=== PATIENT | male | born 1935 | race African-American/Black ===

== ENCOUNTER 2016-09-15 07:34 | Emergency (ER) | payer MEDICARE ==
[2016-09-15 07:49] VITALS: BP 136/92
--- NOTE | 2016-09-15 08:05 | UC ---
Respiratory Complaint HPI - HPI Summary HPI Summary: cough x 7 days + chest congestion , cough with green sputum , fatigue, sob no sore throat, no nasal congestion , no chest pain - History of Current Complaint Chief Complaint: UCRespiratory Stated Complaint: COUGH Time Seen by Provider: 09/15/16 07:47 Hx Obtained From: Patient Onset/Duration: Gradual Onset, Lasting Days - 7, Still Present Timing: Constant Severity Initially: Moderate Severity Currently: Moderate Character: Cough: Productive - green Aggravating Factors: Exertion, Deep Breaths Alleviating Factors: Nothing Associated Signs And Symptoms: Positive: Dyspnea, Wheezing. Negative: Fever, Chills, Pleuritic Chest Pain, Hemoptysis, Dizziness, Calf Pain, Calf Swelling, URI, Nasal Congestion - Allergies/Home Medications Allergies/Adverse Reactions: Allergies Allergy/AdvReac Type Severity Reaction Status Date / Time No Known Allergies Allergy Verified 09/15/16 07:42 PMH/Surg Hx/FS Hx/Imm Hx Endocrine History Of: Denies: Diabetes Cardiovascular History Of: Reports: Cardiac Disorders - irregular heartbeat, Hypertension, Atrial Fibrillation Respiratory History Of: Denies: Asthma GI/ History Of: Denies: Gastroesophageal Reflux Neurological History Of: Denies: TIA Psychological History Of: Denies: Anxiety Cancer History Of: Denies: Lung Cancer Other History Of: Negative For: Hepatitis B - Surgical History Surgical History: None - Family History Known Family History: Positive: None, Unknown, Hypertension - Social History Alcohol Use: None Substance Use Type: None Smoking Status (MU): Never Smoked Tobacco Have You Smoked in the Last Year: No - Immunization History Most Recent Influenza Vaccination: 2016 Most Recent Tetanus Shot: UNK Most Recent Pneumonia Vaccination: UTD Review of Systems Constitutional: Chills, Fatigue Skin: Negative Eyes: Negative ENT: Negative Respiratory: Shortness Of Breath, Cough Cardiovascular: Negative Gastrointestinal: Negative All Other Systems Reviewed And Are Negative: Yes Physical Exam Triage Information Reviewed: Yes Appearance: Well-Appearing, No Pain Distress, Well-Nourished Vital Signs: Initial Vital Signs Temp 96.8 F 09/15/16 07:44 Pulse 83 09/15/16 07:44 Resp 18 09/15/16 07:44 BP 136/92 09/15/16 07:44 Pulse Ox 98 09/15/16 07:44 Vital Signs Reviewed: Yes Eye Exam: Normal Eyes: Positive: Conjunctiva Clear ENT: Positive: Normal ENT inspection, Hearing grossly normal, Pharynx normal Neck: Positive: Supple, Nontender, No Lymphadenopathy Respiratory: Positive: Chest non-tender, Decreased breath sounds Cardiovascular: Positive: RRR, No Murmur, Pulses Normal Musculoskeletal Exam: Normal Skin Exam: Normal UC Diagnostic Evaluation - Laboratory O2 Sat by Pulse Oximetry: 98 Respiratory Course/Dx - Differential Dx/Diagnosis Provider Diagnoses: acute bronchitis Discharge - Discharge Plan Condition: Stable Disposition: HOME Prescriptions: Amoxicillin/Clavulanate TAB* [Augmentin TAB 875*] 875 mg PO BID #20 tab Benzonatate CAP* [Tessalon 100 MG CAP*] 100 mg PO TID #21 cap predniSONE TAB* [Deltasone TAB*] 40 mg PO DAILY #10 tab Patient Education Materials: Acute Bronchitis (ED) Referrals: Maritza Cherry MD [Primary Care Provider] - 7 Days
== END 2016-09-15 08:12 | disposition home or self-care (01) ==
LOC: UCCORT 07:34
DX: J20.9 Acute bronchitis, unspecified (principal)
CPT/HCPCS: 99212; G0463

== ENCOUNTER 2016-09-30 09:22 | Emergency (ER) | payer MEDICARE ==
--- NOTE | 2016-09-30 10:43 | UC ---
UC General HPI - HPI Summary HPI Summary: TWO DAY HISTORY OF RIGHT KNEE PAIN. PMH OF GOUT AND AFIB. WHILE WAITING IN ROOM , BECAME DIZZY AND SHORT OF BREATH WITH BLURRED VISION. - History of Current Complaint Chief Complaint: UCLowerExtremity Stated Complaint: RT KNEE PAIN Time Seen by Provider: 09/30/16 09:59 Hx Obtained From: Patient Onset/Duration: Sudden Onset, Lasting Minutes, Still Present Onset Severity: Moderate Current Severity: Mild Associated Signs & Symptoms: Positive: Dizziness, Weakness. Negative: Confusion , Edema, Fever, Headache, Syncope, Trauma, Vomiting - Allergy/Home Medications Allergies/Adverse Reactions: Allergies Allergy/AdvReac Type Severity Reaction Status Date / Time No Known Allergies Allergy Verified 09/30/16 09:42 PMH/Surg Hx/FS Hx/Imm Hx Previously Healthy: Yes Endocrine History Of: Denies: Diabetes Cardiovascular History Of: Reports: Cardiac Disorders - irregular heartbeat, Hypertension, Atrial Fibrillation Respiratory History Of: Denies: Asthma GI/ History Of: Denies: Gastroesophageal Reflux Neurological History Of: Denies: TIA Psychological History Of: Denies: Anxiety Cancer History Of: Denies: Lung Cancer Other History Of: Negative For: Hepatitis B - Surgical History Surgical History: None - Family History Known Family History: Positive: None, Unknown, Hypertension - Social History Occupation: Retired Lives: With Family Alcohol Use: None Substance Use Type: None Smoking Status (MU): Never Smoked Tobacco Have You Smoked in the Last Year: No - Immunization History Most Recent Influenza Vaccination: 2016 Most Recent Tetanus Shot: UNK Most Recent Pneumonia Vaccination: UTD Review of Systems Constitutional: Negative Skin: Negative Eyes: Negative ENT: Negative Respiratory: Shortness Of Breath Cardiovascular: Palpitations Gastrointestinal: Negative Genitourinary: Negative Motor: Negative Neurovascular: Negative Musculoskeletal: Arthralgia, Myalgia Neurological: Weakness Psychological: Negative All Other Systems Reviewed And Are Negative: Yes Physical Exam Triage Information Reviewed: Yes Appearance: Well-Appearing, No Pain Distress, Well-Nourished Vital Signs: Initial Vital Signs Temp 98.5 F 09/30/16 09:43 Pulse 86 09/30/16 09:43 Resp 16 09/30/16 09:43 BP 123/66 09/30/16 09:43 Pulse Ox 96 09/30/16 09:43 Vital Signs Reviewed: Yes Eye Exam: Normal ENT Exam: Normal ENT: Positive: Normal ENT inspection, Hearing grossly normal, TMs normal Dental Exam: Normal Neck exam: Normal Neck: Positive: Supple, Nontender Respiratory Exam: Normal Respiratory: Positive: Chest non-tender, Lungs clear, Normal breath sounds, No respiratory distress, No accessory muscle use Cardiovascular: Positive: Pulses Normal, Brisk Capillary Refill, Other: - AFIB Abdominal Exam: Normal Musculoskeletal: Positive: No Edema, Strength Limited @ - RIGHT KNEE, ROM Limited @ - RIGHT KNEE Neurological Exam: Normal Psychological Exam: Normal Skin Exam: Normal Course/Dx - Differential Dx - Multi-Symptom Differential Diagnoses: Other - AFIB, GOUT Provider Diagnoses: AFIB; DIZZINESS, SOB; RIGHT KNEE PAIN - Physician Notifications Discussed Patient Care With: KRISTINE VALDEZ Time Discussed With Above Provider: 10:20 Instructed by Provider To: MD Will See In ED Discharge - Discharge Plan Condition: Stable Disposition: TRANS HIGHER LVL OF CARE FAC Referrals: Maritza Cherry MD [Primary Care Provider] -
[2016-09-30 10:54] VITALS: BP 104/70
== END 2016-09-30 10:48 | disposition short-term general hospital (02) ==
LOC: UCCORT 09:22
DX: I48.91 Unspecified atrial fibrillation (principal); R42 Dizziness and giddiness; R06.02 Shortness of breath; I10 Essential (primary) hypertension; M10.9 Gout, unspecified
CPT/HCPCS: 93005; 99213; G0463

== ENCOUNTER 2016-10-02 10:01 | Emergency (ER) | payer MEDICARE ==
[2016-10-02 10:15] VITALS: BP 131/63
--- NOTE | 2016-10-02 10:39 | UC ---
Lower Extremity/Ankle HPI - HPI Summary HPI Summary: 81 YO MALE WITH RIGHT GREAT TOE PAIN AND SWELLING X DAYS HX OF GOUT AND THIS FEELS SIMILAR NO F/C NO TRAUMA - History of Current Complaint Chief Complaint: UCLowerExtremity Stated Complaint: right foot,big toe Time Seen by Provider: 10/02/16 10:03 Hx Obtained From: Patient Onset/Duration: Gradual Onset, Lasting Days Severity Initially: Mild Severity Currently: Mild Pain Intensity: 3 Pain Scale Used: 0-10 Numeric Aggravating Factor(s): Standing, Ambulation Alleviating Factor(s): Rest, Elevation Able to Bear Weight: Yes - Risk Factors Gout Risk Factors: Age Over 40, Male, Hypertension - Allergies/Home Medications Allergies/Adverse Reactions: Allergies Allergy/AdvReac Type Severity Reaction Status Date / Time No Known Allergies Allergy Verified 10/02/16 10:15 PMH/Surg Hx/FS Hx/Imm Hx Endocrine History Of: Denies: Diabetes Cardiovascular History Of: Reports: Cardiac Disorders - irregular heartbeat, Hypertension, Atrial Fibrillation Respiratory History Of: Denies: Asthma GI/ History Of: Denies: Gastroesophageal Reflux Neurological History Of: Denies: TIA Psychological History Of: Denies: Anxiety Cancer History Of: Denies: Lung Cancer Other History Of: Negative For: Hepatitis B - Surgical History Surgical History: None - Family History Known Family History: Positive: Hypertension, Diabetes - Social History Alcohol Use: None Substance Use Type: None Smoking Status (MU): Never Smoked Tobacco Have You Smoked in the Last Year: No - Immunization History Most Recent Influenza Vaccination: 2016 Most Recent Tetanus Shot: UNK Most Recent Pneumonia Vaccination: UTD Review of Systems Constitutional: Negative Skin: Negative Eyes: Negative ENT: Negative Respiratory: Negative Cardiovascular: Negative Gastrointestinal: Negative Genitourinary: Negative Motor: Negative Neurovascular: Negative Musculoskeletal: Arthralgia Neurological: Negative Psychological: Negative All Other Systems Reviewed And Are Negative: Yes Physical Exam Triage Information Reviewed: Yes Appearance: Well-Appearing, No Pain Distress, Well-Nourished Vital Signs: Initial Vital Signs Temp 98.5 F 10/02/16 10:11 Pulse 80 10/02/16 10:11 Resp 16 10/02/16 10:11 BP 131/63 10/02/16 10:11 Pulse Ox 96 10/02/16 10:11 Vital Signs Reviewed: Yes Eyes: Positive: Conjunctiva Clear ENT: Negative: Hearing grossly normal Neck: Positive: Supple, Nontender, No Lymphadenopathy Respiratory: Positive: Lungs clear, Normal breath sounds, No respiratory distress Cardiovascular: Positive: No Murmur. Negative: RRR Musculoskeletal: Positive: Other: - see image Neurological: Positive: Alert Psychological Exam: Normal Skin: Negative: rashes, breakdown Lower Extremity Course/Dx - Differential Dx/Diagnosis Provider Diagnoses: gout Discharge - Discharge Plan Condition: Stable Disposition: HOME Prescriptions: Prednisone [Deltasone] 40 mg PO DAILY #14 tab Patient Education Materials: Gout (ED) Referrals: Maritza Cherry MD [Primary Care Provider] - 4 Days (IF NOT BETTER) Images Feet (Multiple View): 1 - red/swollen
== END 2016-10-02 10:33 | disposition home or self-care (01) ==
LOC: UCCORT 10:01
DX: M10.071 Idiopathic gout, right ankle and foot (principal)
CPT/HCPCS: 99212; G0463

== ENCOUNTER 2016-11-29 08:34 | Emergency (ER) | payer MEDICARE ==
--- NOTE | 2016-11-29 08:54 | UC ---
Lower Extremity/Ankle HPI - HPI Summary HPI Summary: c/o gout pain /swelling right great toe and left index finger pip joint--- states he know what started this he ate the wrong thing-- - History of Current Complaint Chief Complaint: UCUpperExtremity Stated Complaint: LEFT HAND INDEX FINGER/RIGHT FOOT BIG TOE Time Seen by Provider: 11/29/16 08:45 Hx Obtained From: Patient Onset/Duration: Sudden Onset, Lasting Days - 2, Still Present Severity Initially: Moderate Severity Currently: Moderate Pain Intensity: 6 Pain Scale Used: 0-10 Numeric Aggravating Factor(s): Nothing Alleviating Factor(s): Nothing Able to Bear Weight: Yes - Allergies/Home Medications Allergies/Adverse Reactions: Allergies Allergy/AdvReac Type Severity Reaction Status Date / Time No Known Allergies Allergy Verified 11/29/16 08:46 PMH/Surg Hx/FS Hx/Imm Hx Previously Healthy: No Cardiovascular History: Cardiac Disease, Hypertension Other History Of: Negative For: Hepatitis B - Surgical History Surgical History: None - Family History Known Family History: Positive: Hypertension, Diabetes - Social History Occupation: Retired Lives: With Family Alcohol Use: None Substance Use Type: None Smoking Status (MU): Never Smoked Tobacco Have You Smoked in the Last Year: No - Immunization History Most Recent Influenza Vaccination: 2016 Most Recent Tetanus Shot: UNK Most Recent Pneumonia Vaccination: UTD Review of Systems Constitutional: Negative Skin: Negative Eyes: Negative ENT: Negative Respiratory: Negative Cardiovascular: Negative Gastrointestinal: Negative Genitourinary: Negative Motor: Negative Neurovascular: Negative Musculoskeletal: Arthralgia - right great toe and left index finger Neurological: Negative Psychological: Negative All Other Systems Reviewed And Are Negative: Yes Physical Exam Triage Information Reviewed: Yes Appearance: Well-Appearing, No Pain Distress, Well-Nourished Vital Signs Reviewed: Yes Eye Exam: Normal Eyes: Positive: Conjunctiva Clear ENT Exam: Normal ENT: Positive: Normal ENT inspection, Hearing grossly normal. Negative: Nasal congestion, Nasal drainage, Trismus, Muffled/hoarse voice Dental Exam: Normal Neck exam: Normal Neck: Positive: Supple, Nontender Respiratory Exam: Normal Respiratory: Positive: Chest non-tender, Lungs clear, Normal breath sounds, No respiratory distress, No accessory muscle use Cardiovascular Exam: Normal Cardiovascular: Positive: RRR, No Murmur, Pulses Normal, Brisk Capillary Refill Musculoskeletal Exam: Normal Musculoskeletal: Positive: Strength Intact, ROM Intact, No Edema Neurological Exam: Normal Neurological: Positive: Alert, Muscle Tone Normal Psychological Exam: Normal Skin Exam: Normal Lower Extremity Course/Dx - Course Course Of Treatment: colcrys, low purine diet, follow with pcp - Differential Dx/Diagnosis Differential Diagnosis/HQI/PQRI: Cellulitis, Gout, Tendonitis Provider Diagnoses: Reaccurance of Gout Discharge - Discharge Plan Condition: Stable Disposition: HOME Prescriptions: Colchicine* [Colcrys*] 0.6 mg PO DAILY #6 tab Patient Education Materials: Low Purine Diet (ED), Gout (ED) Referrals: Maritza Cherry MD [Primary Care Provider] - 1 Week
[2016-11-29 09:01] VITALS: BP 118/71
== END 2016-11-29 09:06 | disposition home or self-care (01) ==
LOC: UCCORT 08:34
DX: M10.9 Gout, unspecified (principal)
CPT/HCPCS: 99212; G0463

== ENCOUNTER 2017-01-15 15:53 | Emergency (ER) | payer MEDICARE ==
[2017-01-15 16:57] VITALS: BP 141/72
--- NOTE | 2017-01-15 17:11 | UC ---
Skin Complaint HPI - HPI Summary HPI Summary: pt c/o sudden onset of pain, redness, mild swellign in left big toe, metatarsophalangeal joint. X 1 day. Pt has history of gout. - History of Current Complaint Chief Complaint: UCSkin Time Seen by Provider: 01/15/17 16:54 Stated Complaint: LEFT FOOT COMPLAINT Hx Obtained From: Patient Onset/Duration: Sudden Onset, Still Present Skin Exposure Onset/Duration: Days Ago - 1 Timing: Constant Onset Severity: Mild Current Severity: Mild Location: Discrete - left big toe, metatarsophalangeal joint Character: Swelling, Pain, Redness Aggravating: Touch, Other - weight bearing Alleviating: Other - gout treatment Associated Signs & Symptoms: Positive: Negative Related History: Other: - previous history of gout - Allergy/Home Medications Allergies/Adverse Reactions: Allergies Allergy/AdvReac Type Severity Reaction Status Date / Time No Known Allergies Allergy Verified 01/15/17 16:52 Review of Systems Constitutional: Negative Skin: Other - erythema, midl swelling and tenerness left great toe metatarsophalangeal joint Eyes: Negative ENT: Negative Respiratory: Negative Cardiovascular: Negative Gastrointestinal: Negative Genitourinary: Negative Motor: Negative Neurovascular: Negative Musculoskeletal: Edema - left great toe metatarsophalangeal joint Neurological: Negative Psychological: Negative Is Patient Immunocompromised?: No All Other Systems Reviewed And Are Negative: Yes PMH/Surg Hx/FS Hx/Imm Hx Previously Healthy: No - see pmh Cardiovascular History: Cardiac Disease, Hypertension Other History Of: Negative For: Hepatitis B - Surgical History Surgical History: None - Family History Known Family History: Positive: Hypertension, Diabetes - Social History Occupation: Retired Lives: With Family Alcohol Use: None Substance Use Type: None Smoking Status (MU): Never Smoked Tobacco Have You Smoked in the Last Year: No - Immunization History Most Recent Influenza Vaccination: 2016 Most Recent Tetanus Shot: UNK Most Recent Pneumonia Vaccination: UTD Physical Exam Triage Information Reviewed: Yes Appearance: Well-Appearing Vital Signs: Initial Vital Signs Temp 97.6 F 01/15/17 16:53 Pulse 55 01/15/17 16:53 Resp 16 01/15/17 16:53 BP 141/72 01/15/17 16:53 Pulse Ox 96 01/15/17 16:53 Vital Signs Reviewed: Yes Eye Exam: Normal ENT Exam: Normal Neck exam: Normal Neck: Positive: Supple Respiratory Exam: Other Respiratory: Positive: No respiratory distress Musculoskeletal: Positive: Edema @ - left gret toe: metatarsophalangeal joint Neurological Exam: Normal Psychological Exam: Normal Skin Exam: Other - erythema, mild swelling left metatarsophalangeal joint Course/Dx - Differential Diagnoses - Skin Complaint Differential Diagnoses: Cellulitis - Diagnoses Provider Diagnoses: Gout left great toe Discharge - Discharge Plan Condition: Stable Disposition: HOME Prescriptions: Colchicine* [Colcrys*] 0.6 mg PO DAILY #3 tab Patient Education Materials: Low Purine Diet (ED), Gout (ED) Referrals: Geovani Burgess MD [Primary Care Provider] - If Needed
== END 2017-01-15 17:25 | disposition home or self-care (01) ==
LOC: UCCORT 15:53
DX: M10.072 Idiopathic gout, left ankle and foot (principal); I51.9 Heart disease, unspecified; I10 Essential (primary) hypertension
CPT/HCPCS: 99212; G0463

== ENCOUNTER 2017-02-26 08:44 | Emergency (ER) | payer MEDICARE ==
[2017-02-26 09:01] VITALS: BP 119/97
--- NOTE | 2017-02-26 09:27 | UC ---
Hand/Wrist HPI - HPI Summary HPI Summary: Patient is having a flare up of gout. he admits to drinking some red wine this week, which always causes a flare up. right thumb, and 2nd and 3rd finger swollen and tender. - History Of Current Complaint Chief Complaint: UCUpperExtremity Stated Complaint: RIGHT FINGER/WRIST PAIN (GOUT) Time Seen by Provider: 02/26/17 09:15 Hx Obtained From: Patient ?: No Onset/Duration: Sudden Onset, Lasting Days Severity Initially: Moderate Severity Currently: Moderate Character Of Pain: Dull, Aching, Throbbing, Spasmodic Aggravating Factor(s): Movement Alleviating Factor(s): Nothing Associated Signs And Symptoms: Positive: Swelling, Redness Related History: Dominant Hand Right - Allergies/Home Medications Allergies/Adverse Reactions: Allergies Allergy/AdvReac Type Severity Reaction Status Date / Time No Known Allergies Allergy Verified 02/26/17 09:02 Home Medications: Home Medications Colchicine* [Colcrys*] 0.6 mg PO DAILY PRN 02/26/17 [History Confirmed 02/26/17] PMH/Surg Hx/FS Hx/Imm Hx Previously Healthy: Yes Other History Of: Negative For: Hepatitis B - Surgical History Surgical History: None - Family History Known Family History: Positive: Hypertension, Diabetes - Social History Alcohol Use: Rare Substance Use Type: None Smoking Status (MU): Never Smoked Tobacco Have You Smoked in the Last Year: No - Immunization History Most Recent Influenza Vaccination: 2015 Most Recent Tetanus Shot: UNK Most Recent Pneumonia Vaccination: UTD Review of Systems Constitutional: Negative Skin: Negative Eyes: Negative ENT: Negative Respiratory: Negative Cardiovascular: Negative Gastrointestinal: Negative Genitourinary: Negative Motor: Negative Neurovascular: Negative Musculoskeletal: Arthralgia, Edema, Myalgia Neurological: Negative Psychological: Negative Is Patient Immunocompromised?: No All Other Systems Reviewed And Are Negative: Yes Physical Exam Triage Information Reviewed: Yes Appearance: Well-Appearing, Well-Nourished, Pain Distress Vital Signs: Initial Vital Signs Temp 98.6 F 02/26/17 08:53 Pulse 73 02/26/17 08:53 Resp 18 02/26/17 08:53 BP 119/97 02/26/17 08:53 Vital Signs Reviewed: Yes Eye Exam: Normal ENT Exam: Normal Dental Exam: Normal Neck exam: Normal Respiratory Exam: Normal Respiratory: Positive: Chest non-tender, Lungs clear, Normal breath sounds Cardiovascular Exam: Normal Cardiovascular: Positive: RRR, No Murmur, Pulses Normal Abdominal Exam: Normal Abdomen Description: Positive: Nontender, No Organomegaly, Soft Bowel Sounds: Positive: Present Musculoskeletal Exam: Normal Musculoskeletal: Positive: ROM Limited @ - in right hand, Edema @ - in right thumb and 2 fingers Neurological Exam: Normal Neurological: Positive: Alert, Muscle Tone Normal Psychological Exam: Normal Skin Exam: Normal Hand/Wrist Course/Dx - Course Course Of Treatment: hx obtained, exam performed ,meds reviewed, treated for GOUT, primary physician list given. - Differential Dx/Diagnosis Differential Diagnosis/HQI/PQRI: Contusion, Dislocation, Gout, Infection, Sprain , Strain Provider Diagnoses: gout, right hand Discharge - Discharge Plan Condition: Stable Disposition: HOME Prescriptions: Colchicine* [Colcrys*] 0.6 mg PO DAILY #3 tab predniSONE TAB* [Deltasone TAB*] 20 mg PO DAILY #10 tab Patient Education Materials: Low Purine Diet (ED), Gout (ED) Additional Instructions: 1. take the medication as prescribed. 2. I have included a list of primary physicians to follow up with.
== END 2017-02-26 09:38 | disposition home or self-care (01) ==
LOC: UCCORT 08:44
DX: M10.9 Gout, unspecified (principal)
CPT/HCPCS: 99212; G0463

== ENCOUNTER 2017-04-03 14:51 | Emergency (ER) | payer MEDICARE ==
[2017-04-03 15:26] VITALS: BP 140/93
--- NOTE | 2017-04-03 15:43 | UC ---
Upper Extremity HPI - HPI Summary HPI Summary: Pt presents with reoccurrence of gout in right hand. I was fortunate enough to see the patient at his last visit approx 1 month ago, where he was also seen for gout. At that time his gout was confirmed with XR and labwork. He was treated with Colchicine and Prednisone and experienced "75% relief" of his symptoms. He tells me that his pain and swelling were almost gone, but not all the way. Today, he admits that during he ate and drank foods that he was not supposed to and that are known to cause him gout flares. 2 days ago he developed pain and swelling of his right 1st and 2nd digits and right wrist along the joint lines. Denies fever, chills, injury, SOB, chest pain, abdominal pain, N/V/D/C. He tells me that his PCP moved away and, at his last visit, was provided information for a new PCP and follow up. Today he tells me that he prefers to come to the . - History of Current Complaint Chief Complaint: UCGeneralIllness Stated Complaint: RE CK RIGHT WRIST,THUMB, POINTER FINGER Time Seen by Provider: 04/03/17 15:38 Hx Obtained From: Patient Onset/Duration: Sudden Onset - Allergies/Home Medications Allergies/Adverse Reactions: Allergies Allergy/AdvReac Type Severity Reaction Status Date / Time No Known Allergies Allergy Verified 04/03/17 15:26 PMH/Surg Hx/FS Hx/Imm Hx Previously Healthy: Yes Endocrine History: Dyslipidemia Cardiovascular History: Cardiac Disease, Hypertension, Atrial Fibrillation Other History Of: Negative For: Hepatitis B - Surgical History Surgical History: None - Family History Known Family History: Positive: Hypertension, Diabetes - Social History Alcohol Use: None Substance Use Type: None Smoking Status (MU): Never Smoked Tobacco Have You Smoked in the Last Year: No - Immunization History Most Recent Influenza Vaccination: 2017 Most Recent Tetanus Shot: UNK Most Recent Pneumonia Vaccination: UTD Review of Systems Constitutional: Negative Skin: Other - Swelling right fingers and wrist Respiratory: Negative Cardiovascular: Negative Musculoskeletal: Decreased ROM - Right fingers and wrist, Edema - Right fingers and wrist Neurological: Negative Psychological: Negative All Other Systems Reviewed And Are Negative: Yes Physical Exam Triage Information Reviewed: Yes Appearance: Well-Appearing, Well-Nourished Vital Signs: Initial Vital Signs Temp 98.0 F 04/03/17 15:21 Pulse 88 04/03/17 15:21 Resp 17 04/03/17 15:21 BP 140/93 04/03/17 15:21 Pulse Ox 99 04/03/17 15:21 Vital Signs Reviewed: Yes Respiratory: Positive: Chest non-tender, Lungs clear, Normal breath sounds, No respiratory distress, No accessory muscle use Cardiovascular: Positive: No Murmur, Pulses Normal Musculoskeletal: Positive: Strength Intact, ROM Limited @ - Right 1st and 2nd digits. Right wrist. All due to pain and swelling of joints., Edema @ - Right 1st and 2nd digit PIP. Right dorsal wrist., Other: - TTP over 1st and 2nd digit PIP. TTP over dorsal wrist. Neurological: Positive: Alert, Other: - Sensations intact right wrist, hand, and all digits. Psychological: Positive: Age Appropriate Behavior Upper Extremity Course/Dx - Course Course Of Treatment: We had a long discussion regarding the importance of having a PCP, especially given his other chronic health problems. He said he will try to look for someone he likes and schedule an appointment. Gout with stable WNL renal function - rx for Colchicine and prednisone. Rx for Probenecid for after completion of colchicine/prednisone. Ideally, would have liked him to be on allopurinol, but given his lack of follow up care and potential to increase INR - decision was made to try probenecid. - Differential Dx/Diagnosis Provider Diagnoses: Gout right hand Discharge - Discharge Plan Condition: Stable Disposition: HOME Prescriptions: Colchicine* [Colcrys*] 0.6 mg PO DAILY #5 tab predniSONE TAB* [Deltasone TAB*] 30 mg PO DAILY #15 tab Probenecid TAB* [Benemid TAB*] 500 mg PO BID #30 tab Referrals: Geovani Burgess MD [Primary Care Provider] - Additional Instructions: If you develop a fever, SOB, chest pain, new or worsening symptoms - please call your PCP or go to the ED. Your blood pressure was high at todays visit. Please see your primary provider within 4 weeks for recheck and re-evaluation.
== END 2017-04-03 16:12 | disposition home or self-care (01) ==
LOC: UCCORT 14:51
DX: M10.041 Idiopathic gout, right hand (principal); E78.5 Hyperlipidemia, unspecified; I48.91 Unspecified atrial fibrillation; I11.9 Hypertensive heart disease without heart failure
CPT/HCPCS: 99212; G0463

== ENCOUNTER 2017-05-13 16:43 | Emergency (ER) | payer MEDICARE ==
[2017-05-13 17:33] VITALS: BP 152/82
--- NOTE | 2017-05-13 17:50 | UC ---
Respiratory Complaint HPI - HPI Summary HPI Summary: 81 y/o male presents to the Urgent care c/o productive cough with chest congestion, sore throat, body aches, and mild fever for the past week. Pt states symptoms has worsen for the past 2 days when he started to develop chills and mild subjective fever and PICKERING. Pain is 6/10 with swallowing and PICKERING. Cough is producing a yellowish phlegm. He has been taking an OTC cough syrup. Pt denies SOB, chest pain, N/V/D abdominal pain, - History of Current Complaint Chief Complaint: UCRespiratory Stated Complaint: COLD SX Time Seen by Provider: 05/13/17 17:29 Hx Obtained From: Patient Onset/Duration: Gradual Onset, Lasting Weeks - 1 week, Worse Since - 2 days Timing: Constant Severity Initially: Mild Severity Currently: Moderate Pain Intensity: 6 Pain Scale Used: 0-10 Numeric Character: Cough: Productive - yellowish phlegm Aggravating Factors: Recumbent Position Alleviating Factors: OTC Meds Associated Signs And Symptoms: Positive: Fever, Chills, URI, Nasal Congestion - Risk Factors Pulmonary Embolism Risk Factors: Negative Cardiac Risk Factors: Negative Pseudomonas Risk Factors: Negative Tuberculosis Risk Factors: Negative - Allergies/Home Medications Allergies/Adverse Reactions: Allergies Allergy/AdvReac Type Severity Reaction Status Date / Time No Known Allergies Allergy Verified 05/13/17 17:33 PMH/Surg Hx/FS Hx/Imm Hx Previously Healthy: Yes Other Endocrine History: Gout Cardiovascular History: Hypertension, Congestive Heart Failure, Atrial Fibrillation Other History Of: Negative For: Hepatitis B - Surgical History Surgical History: None - Family History Known Family History: Positive: Hypertension, Diabetes - Social History Occupation: Retired Lives: With Family Alcohol Use: None Substance Use Type: None Smoking Status (MU): Never Smoked Tobacco Have You Smoked in the Last Year: No - Immunization History Most Recent Influenza Vaccination: 2017 Most Recent Tetanus Shot: UNK Most Recent Pneumonia Vaccination: UTD Review of Systems Constitutional: Fever, Other - body aches Skin: Negative Eyes: Negative ENT: Sore Throat, Nasal Discharge, Sinus Congestion, Sinus Pain/Tenderness Respiratory: Cough Cardiovascular: Negative Gastrointestinal: Negative Genitourinary: Negative Motor: Negative Neurovascular: Negative Musculoskeletal: Negative Neurological: Headache Psychological: Negative Is Patient Immunocompromised?: No All Other Systems Reviewed And Are Negative: Yes Physical Exam Triage Information Reviewed: Yes Vital Signs: Initial Vital Signs Temp 100 F 05/13/17 17:29 Pulse 87 05/13/17 17:29 Resp 16 05/13/17 17:29 BP 152/82 05/13/17 17:29 Pulse Ox 97 05/13/17 17:29 - Additional Comments Vital Signs Reviewed: Yes General: well developed, well nourished male sitting in the examining table w/o any apparent distress Eyes: Positive: Conjunctiva Clear - PERRLA, EOMI, fundi grossly normal ENT: Positive: Normal ENT inspection, Hearing grossly normal, Pharynx normal, Nasal congestion - edematous and erythematous nasal mucosa, Nasal drainage - yellowish drainage, TMs normal. Negative: Tonsillar swelling, Tonsillar exudate Neck: Positive: Supple, Nontender, No Lymphadenopathy Respiratory: no orthopnea or dyspnea. Able to speak in full sentences, no retractions or accessory muscle use, no tripod position, stridor, or head bobbing. positive breath sound bilaterally, mild wheezing in the left upper posterior lung with mild rhonchi, no rales. Cardiovascular: Positive: RRR, No Murmur, Pulses Normal, Brisk Capillary Refill Abdomen Description: Positive: Nontender, No Organomegaly, Soft. Negative: CVA Tenderness (R), CVA Tenderness (L) Bowel Sounds: Positive: Present Musculoskeletal Exam: Normal Musculoskeletal: Positive: Strength Intact, ROM Intact, No Edema Neurological Exam: Normal Psychological Exam: Normal Skin Exam: Normal UC Diagnostic Evaluation - Laboratory O2 Sat by Pulse Oximetry: 97 Respiratory Course/Dx - Course Course Of Treatment: 81 y/o male presents to the Urgent care c/o productive cough with chest congestion, sore throat, body aches, and mild fever for the past week. Pt states symptoms has worsen for the past 2 days when he started to develop chills and mild subjective fever and PICKERING. Pain is 6/10 with swallowing and PICKERING. Cough is producing a yellowish phlegm. He has been taking an OTC cough syrup. Pt denies SOB, chest pain, N/V/D abdominal pain,Hx obtained. Pt with mild B/L posterior upper lungs with wheezing on examination. Pt w/o Hx of smoking or asthma. Chest X-rasy ordered to r/o any cariopulmonary disease. Impression:No evidence of any acute finding observed as per radiologist. Pt given Prednisone 60mg PO and albuterol Neb Tx to alleviate wheezing and Tylenol PO to decrease temp. O2sat: 97%. Pt tolerated well treatment and lungs cleared. Pt felt better O2Sat: 98%. Influenza A&B: negative. Pt with be Tx for Acute Bronchitis exacerbated by wheezing. Patient prescribed Ugmentin PO, Tessalon PO, Prednisone taper dose and albuterol inhaler, as directed below. The patient was recommended to increase fluid intake. Take medications as recommended. pt instructed to return to the clinic or go to the nearest ER if symptoms do not improve or worsen.Pt's BP is elevated today advised to decrease salt in diet, monitor BP and f/u with PCP for further management. Pt is hemodynamically stable, A&OX3, stating feeling better. Patient understood and agree with plan of care - Differential Dx/Diagnosis Differential Diagnosis/HQI/PQRI: Asthma, Bronchitis, Influenza, Laryngitis, Lower Resp Infection, Sinusitis, Other - pneumonia, Provider Diagnoses: 1- Acute bronchitis. 2- Wheezing. 3- Uncontrolled HTN Discharge - Discharge Plan Condition: Stable Disposition: HOME Prescriptions: Albuterol HFA INHALER* [Ventolin HFA Inhaler*] 1 - 2 puff INH Q6H PRN #1 mdi PRN Reason: Cough Amoxicillin/Clavulanate TAB* [Augmentin TAB 875*] 875 mg PO BID #20 tab Benzonatate CAP* [Tessalon 100 MG CAP*] 100 mg PO TID #21 cap predniSONE TAB* [Deltasone TAB*] 20 mg PO DAILY #8 tab Patient Education Materials: Acute Bronchitis (ED), Low Sodium Diet (ED), Wheezing (ED) Referrals: [facility] [place] [facility] [Outside] - 2 Days Additional Instructions: 1-Please take full course of antibiotic if symptoms are not improving in 2 days. 2-Take Tessalon PO tabs as directed and use the albuterol inhaler to alleviate cough. Take the Prednisone PO as indicated starting tomorrow. Increase fluid intake, rest and eat well. 3- If symptoms do not improve or worsen or your develop SOB with fever and severe wheezing please go immediately to the ER further evaluation and treatment. 4- F/u with your PCP in 3 days for further management if not improvement. 5-Your BP is elevated today. please decrease salt in your diet, monitor BP and if it continues to be elevated please f/u with your PCP for further management
[2017-05-13] MEDS ORDERED: Albuterol 2.5 MG/3 ML NEB.SOL* (0.083%) INH ONE (17:51)
[2017-05-13] MEDS ORDERED: predniSONE TAB* 20 MG PO ONE (17:52)
[2017-05-13] MEDS ORDERED: Acetaminophen TAB* 325 MG PO ONE (17:53)
--- NOTE | 2017-05-13 18:24 | RAD ---
INDICATION: Productive cough, fever and shortness of breath. COMPARISON: Comparison is made with a prior chest x-ray study from March 11, 2015. TECHNIQUE: Dual-energy PA and lateral views of the chest were obtained. FINDINGS: The heart is moderately enlarged and unchanged from the prior study. The lungs are underinflated and clear. No pleural effusion is seen. IMPRESSION: NO EVIDENCE FOR ACUTE FINDING.
== END 2017-05-13 19:00 | disposition home or self-care (01) ==
LOC: UCCORT 16:43
DX: J20.9 Acute bronchitis, unspecified (principal); R06.2 Wheezing; I10 Essential (primary) hypertension
CPT/HCPCS: 71046; 87502; 99213; A9270-GY; G0463; J7512

== ENCOUNTER 2017-07-05 16:43 | Emergency (ER) | payer MEDICARE ==
--- NOTE | 2017-07-05 19:56 | UC ---
Hand/Wrist HPI - HPI Summary HPI Summary: PT WITH SEVERAL DAYS OF LEFT HAND SWELLING, REDNESS AND WARMTH. PT CONCERNED ABOUT GOUT. HAS A H/O GOUT. ALSO REPORTS HIS DOG BIT HIM ON THE LEFT INDEX FINGER 1-2 DAYS BEFORE ONSET OF SX. UNKNOWN DATE OF LAST TETANUS. PT ALSO STATES HE HAS BEEN COUGHING WITH SOME WHITE PHLEGM FOR ABOUT A WEEK. NO FEVER, NAUSEA, ST, EAR PAIN OR PICKERING. NO BODY ACHES. - History Of Current Complaint Chief Complaint: UCRespiratory Stated Complaint: CONGESTION,COUGH,BILATERAL HAND PAIN Time Seen by Provider: 07/05/17 19:32 Hx Obtained From: Patient Onset/Duration: Gradual Onset, Lasting Days, Still Present Severity Initially: Moderate Severity Currently: Moderate Pain Intensity: 5 Character Of Pain: Aching Aggravating Factor(s): Movement Alleviating Factor(s): Rest Associated Signs And Symptoms: Positive: Swelling, Redness, Other - WARMTH Related History: Dominant Hand Right - Allergies/Home Medications Allergies/Adverse Reactions: Allergies Allergy/AdvReac Type Severity Reaction Status Date / Time No Known Allergies Allergy Verified 07/05/17 17:32 PMH/Surg Hx/FS Hx/Imm Hx - Additional Past Medical History Additional PMH: GOUT Cardiovascular History: Hypertension, Atrial Fibrillation Other History Of: Negative For: Hepatitis B - Surgical History Surgical History: None - Family History Known Family History: Positive: Hypertension, Diabetes - Social History Alcohol Use: None Substance Use Type: None Smoking Status (MU): Never Smoked Tobacco Have You Smoked in the Last Year: No - Immunization History Most Recent Influenza Vaccination: 2016 Most Recent Tetanus Shot: UNK Most Recent Pneumonia Vaccination: UTD Review of Systems Constitutional: Negative Skin: Other - ERYTHEMA/WARMTH LEFT HAND ENT: Sore Throat Respiratory: Cough Cardiovascular: Negative Gastrointestinal: Negative Musculoskeletal: Arthralgia, Decreased ROM, Edema All Other Systems Reviewed And Are Negative: Yes Physical Exam Triage Information Reviewed: Yes Appearance: Well-Appearing, No Pain Distress, Well-Nourished Vital Signs: Initial Vital Signs Temp 98.7 F 07/05/17 17:34 Pulse 82 07/05/17 17:34 BP 120/79 07/05/17 17:34 Pulse Ox 99 07/05/17 17:34 Vital Signs Reviewed: Yes Eyes: Positive: Conjunctiva Clear ENT: Positive: Hearing grossly normal, Pharynx normal, TMs normal Neck: Positive: Supple, Nontender, No Lymphadenopathy Respiratory Exam: Normal Cardiovascular Exam: Normal Abdomen Description: Positive: Soft Musculoskeletal: Positive: ROM Limited @ - LEFT INDEX FINGER, Edema @ - LEFT HAND, Other: - TTP LEFT HAND PALM. NOT TENDER INDEX FINGER AROUND BITE SITE. Neurological: Positive: Alert Psychological: Positive: Age Appropriate Behavior Skin: Positive: Other - ERYTHEMA, WARMTH, EDEMA LEFT HAND. HEALING PUNCTURE WOUND LEFT INDEX FINGER Hand/Wrist Course/Dx - Differential Dx/Diagnosis Provider Diagnoses: 1. CELLULITIS S/P DOG BITE LEFT HAND. 2. ACUTE URI. 3. TDAP BOOSTER Discharge - Discharge Plan Condition: Stable Disposition: HOME Prescriptions: Amoxicillin/Clavulanate TAB* [Augmentin TAB 875*] 875 mg PO BID #20 tab predniSONE TAB* [Deltasone TAB*] 40 mg PO DAILY #10 tab Patient Education Materials: Animal Bite (ED), Cellulitis (ED), Upper Respiratory Infection (ED) Referrals: Alvaro Voss MD [Medical Doctor] - If Needed Additional Instructions: TETANUS IMMUNIZATION GIVEN (TDAP): You have been given an immunization against tetanus. Please record this in your records. In general, a booster is needed only once every 10 years. The tetanus shot protects against tetanus or "lockjaw," which is a complication of certain wound infections (the tetanus shot cannot protect against the actual infection). The immunization site may become warm and red due to local reaction. If this occurs, apply warm compresses and take aspirin or ibuprofen to reduce inflammation and discomfort. Return for evaluation if the reaction becomes severe. LOW SUSPICION FOR GOUT BUT GIVEN YOUR HISTORY WILL COVER WITH PREDNISONE. IF YOUR HAND SYMPTOMS DO NOT COMPLETELY RESOLVE WITH TREATMENT FOLLOW-UP WITH DR. VOSS WITH [facility]. CHECK YOUR INR EVERY 3 DAYS FOR THE NEXT 2 WEEKS. CALL YOUR [facility] IN [place] IF YOU ARE OUT OF RANGE. [facility] CAN INTERFERE WITH YOUR WARFARIN AND INCREASE YOUR INR. GO TO THE ER WITHOUT FAIL IF YOU START BLEEDING FROM ANYWHERE.
[2017-07-05 20:01] VITALS: BP 126/95
[2017-07-05] MEDS ORDERED: Tetan/Diph/Pertus SYR(Tdap)* 0.5 ML SYR(BOOSTRIX) use SYR IM ONE (20:01)
== END 2017-07-05 20:12 | disposition home or self-care (01) ==
LOC: UCCORT 16:43
DX: L03.012 Cellulitis of left finger (principal); W54.0XXA Bitten by dog, initial encounter; Y93.9 Activity, unspecified; Y92.009 Unspecified place in unspecified non-institutional (private) residence as the place of occurrence of the external cause; J06.9 Acute upper respiratory infection, unspecified; Z23 Encounter for immunization
CPT/HCPCS: 90471; 90715; 99212; G0463

== ENCOUNTER 2017-08-19 13:59 | Emergency (ER) | payer MEDICARE ==
--- NOTE | 2017-08-19 14:21 | UC ---
Lower Extremity/Ankle HPI - HPI Summary HPI Summary: Pt presents with left great MTP pain for the last 3 days - seems to be getting worse. He has a hx of multiple gout flares. He admits that he has been eating a lot of fish and has had wine/beer recently. Denies injury, fever, or chills. - History of Current Complaint Stated Complaint: LEFT GREAT TOE COMPLAINT Time Seen by Provider: 08/19/17 14:21 Hx Obtained From: Patient Onset/Duration: Gradual Onset Severity Initially: Mild Severity Currently: Moderate Pain Intensity: 4 Pain Scale Used: 0-10 Numeric Able to Bear Weight: Yes - Allergies/Home Medications Allergies/Adverse Reactions: Allergies Allergy/AdvReac Type Severity Reaction Status Date / Time No Known Allergies Allergy Verified 08/19/17 14:24 PMH/Surg Hx/FS Hx/Imm Hx Endocrine History: Dyslipidemia Cardiovascular History: Cardiac Disease, Hypertension, Atrial Fibrillation Other History Of: Negative For: Hepatitis B - Surgical History Surgical History: None - Family History Known Family History: Positive: Hypertension, Diabetes - Social History Occupation: Retired Lives: With Family Alcohol Use: None Substance Use Type: None Smoking Status (MU): Never Smoked Tobacco Have You Smoked in the Last Year: No - Immunization History Most Recent Influenza Vaccination: 2017 Most Recent Tetanus Shot: UNK Most Recent Pneumonia Vaccination: UTD Review of Systems Constitutional: Negative Skin: Negative Respiratory: Negative Cardiovascular: Negative Neurovascular: Negative Musculoskeletal: Other: - Left great MTP pain Neurological: Negative Psychological: Negative All Other Systems Reviewed And Are Negative: Yes Physical Exam - Summary Physical Exam Summary: GENERAL: NAD. WDWN. No pain distress. SKIN: No rashes, sores, ulcers, masses, lesions. NECK: Supple. Nontender. No lymphadenopathy. CHEST: CTAB. No r/r/w. No accessory muscle use. Breathing comfortably and in no distress. CV: RRR. Without m/r/g. Pulses intact PT and DP. Brisk cap refill. MSK: Left great MTP with mild TTP and edema. Mild erythema. FROM. NEURO: Alert. Sensations intact and symmetric B/L LEs PSYCH: Age appropriate behavior. Triage Information Reviewed: Yes Lower Extremity Course/Dx - Course Course Of Treatment: Suspect gout flare. He has done well with colchicine and prednisone in the past - will rx for this again. He still does not want a PCP and or to see someone else for his healthcare. - Differential Dx/Diagnosis Provider Diagnoses: Gout Discharge - Sign-Out/Discharge Documenting (check all that apply): Discharge - Discharge Plan Condition: Stable Disposition: HOME Prescriptions: Colchicine* [Colcrys*] 0.6 mg PO DAILY #5 tab predniSONE TAB* [Deltasone TAB*] 20 mg PO BID #10 tab Referrals: No Primary Care Phys,NOPCP [Primary Care Provider] - Additional Instructions: If you develop a fever, shortness of breath, chest pain, new or worsening symptoms - please call your PCP or go to the ED. Your blood pressure was high at todays visit. Please see your primary provider within 4 weeks for recheck and re-evaluation. - Billing Disposition and Condition Condition: STABLE Disposition: HOME
[2017-08-19 14:27] VITALS: BP 112/69
== END 2017-08-19 15:07 | disposition home or self-care (01) ==
LOC: UCCORT 13:59
DX: M10.9 Gout, unspecified (principal); I10 Essential (primary) hypertension
CPT/HCPCS: 99212; G0463

== ENCOUNTER 2018-02-03 17:15 | Emergency (ER) | payer MEDICARE ==
--- NOTE | 2018-02-03 19:35 | UC ---
Knee Pain HPI - HPI Summary HPI Summary: C/O left knee pain swelling and pain after hitting it on a piano. No sweats or chills. - History of Current Complaint Chief Complaint: UCLowerExtremity Stated Complaint: LEFT KNEE COMPLAINT (FALL 2 DAYS AGO) Hx Obtained From: Patient Onset/Duration: Sudden Onset, Lasting Days - 2, Worse Since - since onset Severity Initially: Mild Severity Currently: Moderate Pain Intensity: 5 Character: Dull, Aching Aggravating Factor(s): Movement, Weight Bearing Alleviating Factor(s): Rest Associated Signs And Symptoms: Positive: Swelling, Redness. Negative: Fever, Weakness, Numbness, Tingling Able to Bear Weight: Yes Related History: Similar Episode/Dx as - gout - Allergies/Home Medications Allergies/Adverse Reactions: Allergies Allergy/AdvReac Type Severity Reaction Status Date / Time No Known Allergies Allergy Verified 02/03/18 17:27 PMH/Surg Hx/FS Hx/Imm Hx Other Endocrine History: Gout Cardiovascular History: Hypertension Other History Of: Negative For: Hepatitis B - Surgical History Surgical History: None - Family History Known Family History: Positive: Hypertension, Diabetes - Social History Occupation: Retired Lives: Alone - with girlfriend Alcohol Use: Rare Substance Use Type: None Smoking Status (MU): Never Smoked Tobacco Have You Smoked in the Last Year: No - Immunization History Most Recent Influenza Vaccination: 2017 Most Recent Tetanus Shot: UNK Most Recent Pneumonia Vaccination: UTD Review of Systems Musculoskeletal: Arthralgia Is Patient Immunocompromised?: No All Other Systems Reviewed And Are Negative: Yes Physical Exam Triage Information Reviewed: Yes Appearance: Well-Appearing, Well-Nourished, Pain Distress - mild Vital Signs: Initial Vital Signs Temp 98.4 F 02/03/18 17:21 Pulse 96 02/03/18 17:21 Resp 20 02/03/18 17:21 BP 102/70 02/03/18 17:21 Pulse Ox 97 02/03/18 17:21 Vital Signs Reviewed: Yes Neck exam: Normal Respiratory Exam: Normal Cardiovascular: Positive: Murmur:Sys:Grade _?_/ - 2/6. Negative: RRR - irregular Musculoskeletal: Positive: Other: - redness, warmth and tenderness over the left tibial tubercle Neurological Exam: Normal Psychological Exam: Normal Skin: Positive: Other - erythema over the left tibial tubercle. Knee Pain Course/Dx - Differential Dx/Diagnosis Differential Diagnosis/HQI/PQRI: Abrasion, Cellulitis, Contusion, Gout Provider Diagnoses: Cellulitis left knee. Gout left knee Discharge - Sign-Out/Discharge Documenting (check all that apply): Patient Departure All imaging exams completed and their final reports reviewed: No Studies - Discharge Plan Condition: Stable Disposition: HOME Prescriptions: Cephalexin CAP* [Keflex 500 CAP*] 500 mg PO QID #40 cap Colchicine* [Colcrys*] 0.6 mg PO BID #60 tab Patient Education Materials: Cellulitis (ED), Cephalexin (By mouth), Gout (ED) , Colchicine (By mouth) Referrals: No Primary Care Phys,NOPCP [Primary Care Provider] - Additional Instructions: Only take the colchicine twice a day for the first day, then take once a day until the gout pain is gone, it should be within 3 to 4 days. - Billing Disposition and Condition Condition: STABLE Disposition: Home
[2018-02-03] MEDS ORDERED: Cephalexin CAP* 500 MG PO ONE (19:41)
[2018-02-03 19:49] VITALS: BP 96/60
== END 2018-02-03 19:55 | disposition home or self-care (01) ==
LOC: UCCORT 17:15
DX: L03.116 Cellulitis of left lower limb (principal); M10.9 Gout, unspecified; I10 Essential (primary) hypertension
CPT/HCPCS: 99212; A9270-GY; G0463

== ENCOUNTER 2018-07-03 09:24 | Emergency (ER) | payer MEDICARE ==
[2018-07-03 10:03] VITALS: BP 107/76
--- NOTE | 2018-07-03 10:35 | UC ---
Throat Pain/Nasal Aamir HPI - HPI Summary HPI Summary: sinus pain and pressure x 7 days nasal congestion , pnd, cough , no sore throat, no fever, no chills no body aches c/o bilateral thumb pain , swelling, and redness, concern a bout gout - History of Current Complaint Chief Complaint: UCGeneralIllness Stated Complaint: CONGESTION,FATIGUE Time Seen by Provider: 07/03/18 10:09 Hx Obtained From: Patient Onset/Duration: Gradual Onset, Lasting Days - 7, Still Present Severity: Moderate Pain Intensity: 5 Pain Scale Used: 0-10 Numeric Cough: Nonproductive Associated Signs & Symptoms: Positive: Sinus Discomfort, Nasal Discharge. Negative: Dysphagia, FB Sensation, Drooling, Wheezing, Hoarseness, Fever, Rash - Allergies/Home Medications Allergies/Adverse Reactions: Allergies Allergy/AdvReac Type Severity Reaction Status Date / Time No Known Allergies Allergy Verified 07/03/18 10:00 PMH/Surg Hx/FS Hx/Imm Hx Cardiovascular History: Hypertension, Atrial Fibrillation Other History Of: Negative For: Hepatitis B - Surgical History Surgical History: None - Family History Known Family History: Positive: Hypertension, Diabetes - Social History Alcohol Use: None Substance Use Type: None Smoking Status (MU): Never Smoked Tobacco Have You Smoked in the Last Year: No - Immunization History Most Recent Influenza Vaccination: 2017 Most Recent Tetanus Shot: UNK Most Recent Pneumonia Vaccination: UTD Review of Systems All Other Systems Reviewed And Are Negative: Yes Constitutional: Positive: Negative Skin: Positive: Negative Eyes: Positive: Negative ENT: Positive: Nasal Discharge, Sinus Congestion, Sinus Pain/Tenderness Respiratory: Positive: Cough Cardiovascular: Positive: Negative Is Patient Immunocompromised?: No Physical Exam Triage Information Reviewed: Yes Appearance: Well-Appearing, No Pain Distress, Well-Nourished Vital Signs: Initial Vital Signs Temp 97.6 F 07/03/18 09:59 Pulse 83 07/03/18 09:59 Resp 16 07/03/18 09:59 BP 107/76 07/03/18 09:59 Pulse Ox 98 07/03/18 09:59 Vital Signs Reviewed: Yes Eye Exam: Normal Eyes: Positive: Conjunctiva Clear ENT Exam: Normal ENT: Positive: Normal ENT inspection, Hearing grossly normal, Pharynx normal, Pharyngeal erythema Neck: Positive: Supple, Nontender, No Lymphadenopathy Respiratory: Positive: Chest non-tender, Lungs clear, Normal breath sounds Cardiovascular: Positive: RRR, No Murmur, Pulses Normal Musculoskeletal: Positive: ROM Intact, Other: - bialteral thumb : mild swelling MP joint , mild tenderness, no erythema, good ROM Skin Exam: Normal Throat Pain/Nasal Course/Dx - Differential Dx/Diagnosis Provider Diagnosis: Sinusitis, Arthritis Discharge - Sign-Out/Discharge Documenting (check all that apply): Patient Departure All imaging exams completed and their final reports reviewed: No Studies - Discharge Plan Condition: Stable Disposition: HOME Prescriptions: Amoxicillin 875 mg PO BID #14 tablet predniSONE TAB* [Deltasone 10 MG TAB*] 10 mg PO DAILY #7 tab Patient Education Materials: Sinusitis (ED), Gout (ED) Referrals: Geovani Burgess MD [Primary Care Provider] - 7 Days - Billing Disposition and Condition Condition: STABLE Disposition: Home
== END 2018-07-03 10:26 | disposition home or self-care (01) ==
LOC: UCCORT 09:24
DX: J32.9 Chronic sinusitis, unspecified (principal); M13.842 Other specified arthritis, left hand; M13.841 Other specified arthritis, right hand; I10 Essential (primary) hypertension
CPT/HCPCS: 99212; G0463

== ENCOUNTER 2019-01-26 11:56 | Emergency (ER) | payer MEDICARE ==
[2019-01-26 12:15] VITALS: BP 131/84
--- NOTE | 2019-01-26 12:39 | UC ---
Respiratory Complaint HPI - HPI Summary HPI Summary: Pt presents with c/o cough , SOB, feeling "sweaty", weakness X 2 days. - History of Current Complaint Chief Complaint: UCRespiratory Stated Complaint: COUGH,SOB,WHEEZING Time Seen by Provider: 01/26/19 12:18 Hx Obtained From: Patient Onset/Duration: Sudden Onset, Lasting Days, Still Present Timing: Constant Severity Initially: Mild Severity Currently: Mild Pain Intensity: 0 Character: Cough: Nonproductive Aggravating Factors: Deep Breaths, Recumbent Position Alleviating Factors: Nothing Associated Signs And Symptoms: Positive: URI, Nasal Congestion - Risk Factors Pulmonary Embolism Risk Factors: Negative Cardiac Risk Factors: Hypertension, CAD Pseudomonas Risk Factors: Negative Tuberculosis Risk Factors: Negative - Allergies/Home Medications Allergies/Adverse Reactions: Allergies Allergy/AdvReac Type Severity Reaction Status Date / Time No Known Allergies Allergy Verified 01/26/19 12:16 PMH/Surg Hx/FS Hx/Imm Hx Previously Healthy: Yes Cardiovascular History: Cardiac Disease, Hypertension Other History Of: Negative For: Hepatitis B - Surgical History Surgical History: None - Family History Known Family History: Positive: Hypertension, Diabetes - Social History Occupation: Retired Lives: With Family Alcohol Use: None Substance Use Type: None Smoking Status (MU): Never Smoked Tobacco Have You Smoked in the Last Year: No - Immunization History Most Recent Influenza Vaccination: 2017 Most Recent Tetanus Shot: UNK Most Recent Pneumonia Vaccination: UTD Review of Systems All Other Systems Reviewed And Are Negative: Yes Constitutional: Positive: Chills, Fatigue Skin: Positive: Negative Eyes: Positive: Negative ENT: Positive: Negative Respiratory: Positive: Shortness Of Breath, Cough Cardiovascular: Positive: Negative Gastrointestinal: Positive: Negative Genitourinary: Positive: Negative Motor: Positive: Negative Neurovascular: Positive: Negative Musculoskeletal: Positive: Negative Neurological: Positive: Negative Psychological: Positive: Negative Is Patient Immunocompromised?: No Physical Exam Triage Information Reviewed: Yes Appearance: Well-Appearing Vital Signs: Initial Vital Signs Temp 97.6 F 01/26/19 12:12 Pulse 57 01/26/19 12:12 Resp 16 01/26/19 12:12 BP 131/84 01/26/19 12:12 Pulse Ox 96 01/26/19 12:12 Vital Signs Reviewed: Yes Eye Exam: Normal ENT: Positive: Nasal congestion Dental Exam: Normal Neck exam: Normal Respiratory: Positive: Decreased breath sounds Cardiovascular Exam: Normal Musculoskeletal Exam: Normal Neurological Exam: Normal Psychological Exam: Normal Skin Exam: Normal Diagnostics - Radiology No standard instances Radiology Interpretation Completed By: Radiologist - Assembler Wet Wash: Tin Anderson, ([id number]) Diagnostic Radiologic Technologist: ILDA (ILDA) Report Date: 2018 12:21:00 Report Status: Final ======= Start of Report Content Patient Name: PETER IVERSON Medical Record#: [id number] Ordering Physician: Teetee Malloy NP Acct.#: [id number] : 1935 Age: 83 Sex: M Location: [facility]RG[facility] Exam Date: 01/26/19 1221 ADM Status: REG ER Order Information: CHEST PA LAT 2 VWS Accession Number: [id number] CPT: 99116 INDICATION: Cough and shortness of breath COMPARISON: May 13, 2017 chest radiograph TECHNIQUE: Dual-energy PA and lateral views of the chest were obtained. FINDINGS: The lungs are clear. There is no pleural effusion. The enlarged cardiomediastinal silhouette is within normal limits. The upper abdominal contents are normal. Osseous structures are unremarkable. IMPRESSION: 1. No acute cardiopulmonary process by radiograph. 2. Stable cardiomegaly <Electronically signed by Tin Anderson MD in OV> 01/26/19 1303 Dictated By: Tin Anderson MD Dictated Date/Time: 01/26/19 1300 Transcribed Date/Time: 01/26/19 1300 Copy to: CC:Nikkie Bashir MD; Teetee Malloy MACHINE TOOL TECHNOLOGY INSTRUCTOR; Troy Rodriguez MD Imaging - [facility] Imaging - [facility] [address] [address] ph ([phone]) ph ([phone]) ph ([phone]) ===== End of Report Content Respiratory Course/Dx - Course Course Of Treatment: Pt has several comorbidities, and discussed the use of antibiotics with the pt and pt requested antibiotics. . - Differential Dx/Diagnosis Differential Diagnosis/HQI/PQRI: Bronchitis Provider Diagnosis: Bronchitis Discharge ED - Sign-Out/Discharge Documenting (check all that apply): Patient Departure All imaging exams completed and their final reports reviewed: No Studies - Discharge Plan Condition: Stable Disposition: HOME Prescriptions: Amoxicillin PO (*) [Amoxicillin 500 MG CAP*] 500 mg PO Q12H #20 cap Patient Education Materials: Acute Bronchitis (ED) Referrals: Nikkie Bashir MD [Primary Care Provider] - If Needed - Billing Disposition and Condition Condition: STABLE Disposition: Home
== END 2019-01-26 13:19 | disposition home or self-care (01) ==
LOC: UCCORT 11:56
DX: J40 Bronchitis, not specified as acute or chronic (principal); I51.7 Cardiomegaly
CPT/HCPCS: 71046; 99212; G0463

== ENCOUNTER 2019-03-30 12:37 | Emergency (ER) | payer MEDICARE ==
[2019-03-30 13:02] VITALS: BP 114/64
--- NOTE | 2019-03-30 13:27 | UC ---
Lower Extremity/Ankle HPI - HPI Summary HPI Summary: 83-year-old male comes in with a chief complaint of left foot pain after injury last evening. Jammed his foot last evening he has pain at the base of the left great toe. Pain is worse with movement of the toe and weightbearing. He does have a pair of shoes it does decrease the pain with ambulation. No skin break. No complaint of any other injuries. - History of Current Complaint Chief Complaint: UCLowerExtremity Stated Complaint: LEFT BIG TOE INJURY Time Seen by Provider: 03/30/19 13:20 Pain Intensity: 7 - Allergies/Home Medications Allergies/Adverse Reactions: Allergies Allergy/AdvReac Type Severity Reaction Status Date / Time No Known Allergies Allergy Verified 03/30/19 13:02 PMH/Surg Hx/FS Hx/Imm Hx Previously Healthy: Yes Cardiovascular History: Hypertension Other History Of: Negative For: Hepatitis B - Surgical History Surgical History: None - Family History Known Family History: Positive: Hypertension, Diabetes - Social History Alcohol Use: None Substance Use Type: None Smoking Status (MU): Never Smoked Tobacco Have You Smoked in the Last Year: No - Immunization History Most Recent Influenza Vaccination: 2016 Most Recent Tetanus Shot: UNK Most Recent Pneumonia Vaccination: UTD Review of Systems All Other Systems Reviewed And Are Negative: Yes Constitutional: Positive: Negative Skin: Positive: Negative Eyes: Positive: Negative ENT: Positive: Negative Respiratory: Positive: Negative Cardiovascular: Positive: Negative Gastrointestinal: Positive: Negative Motor: Positive: Negative Neurovascular: Positive: Negative Musculoskeletal: Positive: Other: - SEE HPI Neurological: Positive: Negative Psychological: Positive: Negative Is Patient Immunocompromised?: No Physical Exam Triage Information Reviewed: Yes Appearance: Well-Appearing, No Pain Distress, Well-Nourished Vital Signs: Initial Vital Signs Temp 97.9 F 03/30/19 12:57 Pulse 105 03/30/19 12:57 Resp 16 03/30/19 12:57 BP 114/64 03/30/19 12:57 Pulse Ox 97 03/30/19 12:57 Vital Signs Reviewed: Yes Eye Exam: Normal Eyes: Positive: Conjunctiva Clear Neck: Positive: Supple Respiratory: Positive: No respiratory distress Musculoskeletal: Positive: Strength Intact, Other: - Tender to palpation at the base of the left great toe. Normal capillary refill normal sensation. The rest of the foot Is nontender to palpation. Neurological: Positive: Alert Skin Exam: Normal Lower Extremity Course/Dx - Course Course Of Treatment: Printed Circuit Boards Laminator: Norma Desouza S, ([id number]) Wireworker: ILDA (ILDA) Report Date: 03/30/2019 14:11:00 Report Status: Final Start of Report Content Patient Name: PETER IVERSON Medical Record#: [id number] Ordering Physician: Troy Rodriguez MD Acct.#: [id number] : 07/1935 Age: 83 Sex: M Location: [facility] Exam Date: 03/30/19 132 ADM Status: REG ER Order Information: FOOT LEFT 3+ VWS Accession Number: [id number] CPT: 10004 Indication: Great toe injury. 3 views of the left foot demonstrates degenerative changes of the first metatarsophalangeal joint. Erosive changes are noted in the possibility of gout should be considered. No fracture is noted. IMPRESSION: Degenerative changes of the first metatarsophalangeal joint. The possibility of gout of the first metatarsal phalangeal joint could BE considered. <Electronically signed by Norma Desouza MD in OV> 03/30/19 1406 Dictated By: Norma Desouza MD Dictated Date/Time: 03/30/19 1347 Transcribed Date/Time: 03/30/19 134 Copy to: CC:Nikkie Bashir MD; Troy Rodriguez MD Imaging - [facility] Imaging - [facility] [address] ([phone]) ([phone]) ) End of Report Content I discussed x-rays report with the patient. The sesamoid bone at the first MTP has a potential for chip fracture. Clinically it appears that this is an episode of gout is brought on by trauma. The majority of the discomfort and swelling is on the dorsal aspect of the first MTP. Patient is on Coumadin and therefore cannot take nonsteroidal anti-inflammatories. Therefore we will treat with colchicine. Patient placed and a postop shoe and nursing patient neurovascular intact after placement of the postop shoe. Follow-up with orthopedics. - Differential Dx/Diagnosis Provider Diagnosis: Foot pain, left Discharge ED - Sign-Out/Discharge Documenting (check all that apply): Patient Departure All imaging exams completed and their final reports reviewed: Yes - Discharge Plan Condition: Stable Disposition: HOME Prescriptions: Colchicine [Mitigare] 0.6 mg PO SEE INSTRUCTIONS PRN #12 capsule PRN Reason: Pain - Moderate Patient Education Materials: Gout (ED) Referrals: Nikkie Bashir MD [Primary Care Provider] - Alvaro Voss MD [Medical Doctor] - Additional Instructions: FOLLOW UP WITH DR VOSS, ORTHOPEDICS, OR YOUR PRIMARY CARE DOCTOR. GET REEVALUATED SOONER IF NOT IMPROVING OR WORSE OR ANY QUESTIONS OR CONCERNS. - Billing Disposition and Condition Condition: STABLE Disposition: Home
== END 2019-03-30 14:37 | disposition home or self-care (01) ==
LOC: UCCORT 12:37
DX: M79.672 Pain in left foot (principal); I10 Essential (primary) hypertension
CPT/HCPCS: 99213; G0463

== ENCOUNTER 2019-05-03 13:49 | Emergency (ER) | payer MEDICARE ==
[2019-05-03 14:24] VITALS: BP 132/86
--- NOTE | 2019-05-03 15:23 | UC ---
UC General HPI - HPI Summary HPI Summary: 83-year-old male comes in with a chief complaint of left great toe pain. Patient struck it yesterday accidentally. Pain is worse at the first MTP. Patient reports this reminds him of flareup of gout. Patient is on a blood thinner is not able to take nonsteroidal anti-inflammatories and last time he was treated for gouty was used colchicine 0.6 mg by mouth twice a day total number of 12. Patient also reports he's got bronchitis symptoms with some chest congestion. Reports antibiotics help with his bronchitis symptoms. - History of Current Complaint Chief Complaint: UCGeneralIllness Stated Complaint: LT TOE INJ./COUGH Time Seen by Provider: 05/03/19 15:22 Pain Intensity: 8 - Allergy/Home Medications Allergies/Adverse Reactions: Allergies Allergy/AdvReac Type Severity Reaction Status Date / Time No Known Allergies Allergy Verified 05/03/19 14:20 PMH/Surg Hx/FS Hx/Imm Hx Previously Healthy: Yes - GOUT Cardiovascular History: Hypertension, Congestive Heart Failure Other History Of: Negative For: Hepatitis B - Surgical History Surgical History: None - Family History Known Family History: Positive: Hypertension, Diabetes - Social History Alcohol Use: None Substance Use Type: None Smoking Status (MU): Never Smoked Tobacco Have You Smoked in the Last Year: No - Immunization History Most Recent Influenza Vaccination: 2017 Most Recent Tetanus Shot: UNK Most Recent Pneumonia Vaccination: UTD Review of Systems All Other Systems Reviewed And Are Negative: Yes Constitutional: Positive: Negative Skin: Positive: Negative Eyes: Positive: Negative ENT: Positive: Nasal Discharge, Sinus Congestion Respiratory: Positive: Cough, Other - SEE HPI Cardiovascular: Positive: Negative Gastrointestinal: Positive: Negative Motor: Positive: Negative Neurovascular: Positive: Negative Musculoskeletal: Positive: Other: - SEE HPI Neurological: Positive: Negative Psychological: Positive: Negative Is Patient Immunocompromised?: No Physical Exam Triage Information Reviewed: Yes Appearance: Well-Appearing, No Pain Distress, Well-Nourished Vital Signs: Initial Vital Signs Temp 98.2 F 05/03/19 14:17 Pulse 54 05/03/19 14:17 Resp 16 05/03/19 14:17 BP 132/86 05/03/19 14:17 Pulse Ox 98 05/03/19 14:17 Vital Signs Reviewed: Yes Eye Exam: Normal Eyes: Positive: Conjunctiva Clear ENT: Positive: Pharyngeal erythema, Nasal congestion, Nasal drainage, TMs normal Neck: Positive: Supple Respiratory: Positive: Lungs clear, Normal breath sounds, No respiratory distress Cardiovascular: Positive: Bradycardia Musculoskeletal: Positive: Strength Intact, ROM Intact, Other: - Left MTP is swollen and warm to touch and tender to palpation. He can move his toes. Normal capillary refill normal dorsalis pedis pulse. No sensation deficits. Neurological: Positive: Alert, Muscle Tone Normal Psychological: Positive: Age Appropriate Behavior Skin Exam: Normal Course/Dx - Course Course Of Treatment: Patient Services Assistant: Jared Moses C ([id number]) Disease Management Nurse: ILDA ( NUANCE) Report Date: 05/03/2019 15:08:00 Report Status: Final ====== Start of Report Content Patient Name: PETER IVERSON Medical Record#: [id number] Ordering Physician: Troy Rodriguez MD Acct.#: [id number] : 07/1935 Age: 83 Sex: M Location: [facility] Exam Date: 05/03/19 1432 ADM Status: REG ER Order Information: TOE LEFT GREAT Accession Number: [id number] CPT: 42468 Indication: One-week LEFT foot swelling following stubbing injury to the great toe. History of gout arthropathy at the great toes. Comparison: March 30, 2019 Technique: AP, lateral, and oblique views LEFT great toe. Report: #. Negative for fracture. #. Mild hallux valgus deformity at the great toe and second through fifth toe hammertoe deformities. # . Mild osteophytosis and advanced joint space narrowing at the great toe with associated subchondral sclerosis and cystic change. Additionally there is juxta articular osseous erosion at the medial margin of the head of the first metatarsal with overlying swelling corresponding with history of gout arthropathy. #. Diffuse vascular calcifications. IMPRESSION: #. Negative for fracture. #. Osteoarthritis and gout arthropathy. <Electronically signed by Jared Moses MD in OV> 05/03/19 1504 Dictated By: Jared Moses MD Dictated Date/Time: 05/03/19 1501 Transcribed Date/Time: 05/03/191500 Copy to: CC:[facility]; Nikkie Bashir MD; Troy Rodriguez MD Imaging - [facility] Imaging - [facility] Imaging - [facility] [address] [place] [id number] [address] [address] ph ) ph ([phone]) ph ([phone]) End of Report Content ==== I discussed the x-rays with the patient. We will treat for gout. Patient's unable to take nostril anti-inflammatories due to being on a blood thinner therefore we will use colchicine. I wrote for 12 tablets and he needs to follow -up his primary care doctor. Patient like to be on an antibiotic for his bronchitis symptoms. He will also need to follow-up with his primary care doctor for that. Patient's to get reevaluated sooner if worse any questions or concerns. - Diagnoses Provider Diagnosis: Gouty arthritis of left great toe, Bronchitis Discharge ED - Sign-Out/Discharge Documenting (check all that apply): Patient Departure All imaging exams completed and their final reports reviewed: Yes - Discharge Plan Condition: Stable Disposition: HOME Prescriptions: Amoxicillin PO (*) [Amoxicillin 875 MG (*)] 875 mg PO BID #14 tab Colchicine* [Colcrys*] 0.6 mg PO BID #12 tab Patient Education Materials: Gout (ED), Acute Bronchitis (ED) Referrals: Nikkie Bashir MD [Primary Care Provider] - Additional Instructions: FOLLOW UP WITH YOUR DOCTOR. GET REEVALUATED SOONER IF NOT IMPROVING OR WORSE; SHORTNESS OF BREATH, CHEST PAIN, YOU FEEL ILL OR ANY QUESTIONS OR CONCERNS. - Billing Disposition and Condition Condition: STABLE Disposition: Home
== END 2019-05-03 15:42 | disposition home or self-care (01) ==
LOC: UCCORT 13:49
DX: M10.072 Idiopathic gout, left ankle and foot (principal); J40 Bronchitis, not specified as acute or chronic; I10 Essential (primary) hypertension; I50.9 Heart failure, unspecified; M19.072 Primary osteoarthritis, left ankle and foot
CPT/HCPCS: 99212; G0463